=== PATIENT | female | born 1990 ===

== ENCOUNTER 2021-07-17 14:24 | Outpatient (CLI) | payer OTHER | END 2021-07-17 15:30 | disposition home or self-care (01) | LOC: PRENATAL 14:24 | PROVIDERS: ATTEND Obstetrics & Gynecology Maternal & Fetal Medicine | DX: O35.0XX0 Maternal care for (suspected) central nervous system malformation in fetus, not applicable or unspecified (principal); O35.3XX0 Maternal care for (suspected) damage to fetus from viral disease in mother, not applicable or unspecified; Z3A.18 18 weeks gestation of pregnancy ==

== ENCOUNTER 2021-08-30 13:35 | Outpatient (CLI) | payer OTHER | END 2021-08-30 14:50 | disposition home or self-care (01) | LOC: PRENATAL 13:35 | PROVIDERS: ATTEND Obstetrics & Gynecology Maternal & Fetal Medicine | DX: O26.849 Uterine size-date discrepancy, unspecified trimester (principal); Z3A.26 26 weeks gestation of pregnancy ==